=== PATIENT | male | born 2000 | race Caucasian/White ===

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

== ENCOUNTER → 2022-02-28 10:30 | Outpatient (CLI) | payer OTHER, SELFPAY ==
--- NOTE | ~2022-02-28 | XR_ITS ---
XR wrist LT min 3V DATE: 02/28/2022 11:03 INDICATION: Fall. Left wrist pain. TECHNIQUE: 4 views COMPARISON: 06/08/2016 left wrist FINDINGS: No fracture or dislocation, periosteal reaction or bone destruction, joint space narrowing, erosive change or chondrocalcinosis. IMPRESSION: Negative Reviewed, dictated and finalized at location A. WORKER [employer]IN IMPRESSION: Negative
== END ==
PROVIDERS: PCP Emergency Medicine; Visit Provider Emergency Medicine
DX: M25.532 Pain in left wrist (principal)
CPT/HCPCS: 73110

== ENCOUNTER 2022-03-09 18:14 | Emergency (ER) | payer OTHER, SELFPAY ==
--- NOTE | 2022-03-09 18:19 | ED.LOWEXIN ---
HPI - Extremity Injury (Lower) General Stated Complaint: Foot Pain Source: patient and RN notes reviewed Mode of arrival: ambulatory Limitations: no limitations Related Data Home Medications Medication Instructions Recorded Confirmed diclofenac sodium 75 mg 75 mg PO BID 03/10/20 09/13/20 tablet,delayed release cyclobenzaprine 10 mg tablet 10 mg PO BID 09/13/20 09/13/20 Allergies Allergy/AdvReac Type Severity Reaction Status Date / Time No Known Allergies Allergy Verified 09/13/20 18:56 Review of Systems Review of Systems: CONSTITUTIONAL: Denies malaise, chills, sweats, or fever. SKIN: Denies rash or itching, open skin, laceration, abrasion, redness, warmth, swelling. MUSCULOSKELETAL: Reports left knee pain NEUROLOGIC: Denies numbness, weakness All systems reviewed & are unremarkable except as noted in HPI and below PMFSH Past Medical History Medical History (Updated 09/14/20 @ 00:00 by Kareen Barbour) Lupus (systemic lupus erythematosus) per patient Surgical History Surgical History No significant past surgical history Family History Family History Father Family history of mental disorder Other History of autoimmune disorder Social History Social History Smoking status: Current some day smoker Alcohol intake: never Substance use: never Comments At time of signature, agree with nursing past medical, surgical, social and family history. There is no relevant family history pertinent to the presenting complaint Exam Narrative: GENERAL: Well-appearing, well-nourished, and in no acute distress. HEAD: Normocephalic, atraumatic. EYES: PERRLA, conjunctivae clear NECK: Supple. CHEST: Speaks in full sentences. No respiratory distress. HEART: Regular rate and rhythm. Normal and equal peripheral pulses. EXTREMITIES: [Xxx] has normal strength and sensation, normal range of motion. No edema or ecchymosis. 5/5 strength with [xxx] flexion and extension. Normal sensation with sensitivity to light touch and pain. No point tenderness. No open wounds, no skin tenting, no devitalized tissue or atrophy, no trophic changes, no obvious deformity, alignment normal, nearby joints and structures intact. Distal pulses palpable and equal bilaterally, skin warm, dry, pink. Capillary refill less than 3 seconds. SKIN: Warm, dry, no rash. NEURO: Alert and oriented x3. PSYCH: Normal mood and affect Course Course Emergency Course: Patient is aware of diagnosis, understands and agrees to treatment plan. Anticipatory guidance given. Patient agrees to follow-up as directed and is aware of reasons to seek care at the emergency department. Portions of this record may have been created with voice recognition software Level of Care: Express Care Visit Vital Signs Vital signs: Reviewed. MDM - Extremity Injury (Lower) MDM Narrative Medical decision making narrative: Patients injury and pain is consistent with musculoskeletal etiology. No signs of neurological or vascular compromise on exam. Compartments and tissues are soft without signs of compartment syndrome. Pain is felt appropriate for further evaluation on an outpatient basis. Critical Care Time Critical Care Time Critical Care Time: No Discharge Plan Discharge Prescriptions: No Action diclofenac sodium 75 mg tablet,delayed release (DR/EC) 75 mg PO BID cyclobenzaprine 10 mg tablet 10 mg PO BID Follow-up/Referrals: Josiah Pedro MD [Primary Care Provider] -
[2022-03-09 18:33] VITALS: BP 129/70; PULSE 83; RESP 18; TEMP 36.8; O2SAT 100
--- NOTE | 2022-03-09 19:00 | ED.SKABFB ---
HPI - Skin/Abscess/Foreign Bdy General Chief complaint: Skin/Abscess/Foreign Body Stated complaint: Foot Pain Time Seen by Provider: 03/09/22 19:00 Source: patient and RN notes reviewed Mode of arrival: ambulatory Limitations: no limitations History of Present Illness HPI narrative: 22-year-old male presents concern for rash on his feet, painful white spots on the bottom of his feet. He reports he works a lot, his feet are in have issues socks all day long, he has been cleaning his feet twice daily, changing started, using athlete's foot cream for about 5 days. He reports symptoms do not seem to be improving very much. Denies injury or trauma. Denies open skin, swelling, redness, drainage MD complaint: rash Related Data Home Medications Medication Instructions Recorded Confirmed diclofenac sodium 75 mg 75 mg PO BID 03/10/20 03/09/22 tablet,delayed release cyclobenzaprine 10 mg tablet 10 mg PO DIRECTED 03/09/22 03/09/22 Allergies Allergy/AdvReac Type Severity Reaction Status Date / Time No Known Allergies Allergy Verified 03/09/22 18:23 Review of Systems Review of Systems: CONSTITUTIONAL: Denies malaise, chills, sweats, or fever. EYES: Denies redness, or discharge. ENT: Denies rhinorrhea, congestion, swollen lips, swollen tongue CARDIOVASCULAR: Denies chest pain, palpitations, or edema. RESPIRATORY: Denies cough or dyspnea. GASTROINTESTINAL: Denies abdominal pain, nausea, vomiting SKIN: Reports rash in between toes of both feet, white spot on the bottom of his feet MUSCULOSKELETAL: Denies joint pain or myalgia. NEUROLOGIC: Denies headache. All systems reviewed & are unremarkable except as noted in HPI and below [facility] Past Medical History Medical History (Updated 03/09/22 @ 19:08 by Katie Romero NP) Lupus (systemic lupus erythematosus) per patient Surgical History Surgical History No significant past surgical history Family History Family History Father Family history of mental disorder Other History of autoimmune disorder Social History Social History Smoking status: Current some day smoker Alcohol intake: never Substance use: never Comments At time of signature, agree with nursing past medical, surgical, social and family history. There is no relevant family history pertinent to the presenting complaint Exam Narrative: GENERAL: Well-appearing, well-nourished, and in no acute distress. HEAD: Normocephalic, atraumatic. EYES: PERRLA, conjunctivae clear, and EOMI. ENT: Mucous membranes moist. NECK: Supple. No lymphadenopathy CHEST: Clear to auscultation. No respiratory distress. HEART: Regular rate and rhythm. SKIN: Warm, dry. Erythematous scaly plaque rash noted between toes both feet consistent with tinea, flat slightly tender nonfluctuant white patches noted to the pedal aspect of both feet NEURO: Alert and oriented x3. PSYCH: Normal mood and affect Course Course Emergency Course: Patient is aware of diagnosis, understands and agrees to treatment plan. Anticipatory guidance given. Patient agrees to follow-up as directed and is aware of reasons to seek care at the emergency department. Portions of this record may have been created with voice recognition software Level of Care: Express Care Visit Vital Signs Vital signs: Vital Signs Temperature 98.2 F 03/09/22 18:33 Pulse Rate 83 03/09/22 18:33 Respiratory Rate 18 03/09/22 18:33 Blood Pressure 129/70 03/09/22 18:33 Pulse Oximetry 100 03/09/22 18:33 Oxygen Delivery Room Air 03/09/22 18:33 Temperature 98.2 F 03/09/22 18:33 Pulse Rate 83 03/09/22 18:33 Respiratory Rate 18 03/09/22 18:33 Blood Pressure 129/70 03/09/22 18:33 Pulse Oximetry 100 03/09/22 18:33 Oxygen Delivery Room Air 03/09/22 18:33 Rev
== END 2022-03-09 19:15 | disposition home or self-care (01) ==
PROVIDERS: Emergency Provider Nurse Practitioner; PCP Emergency Medicine
DX: B35.3 Tinea pedis (principal); F17.200 Nicotine dependence, unspecified, uncomplicated; M32.9 Systemic lupus erythematosus, unspecified
CPT/HCPCS: 99213; G0463